=== PATIENT | female | born 1980 | race Caucasian/White ===

== ENCOUNTER → 2016-12-13 | Outpatient (CLI) | payer OTHER ==
--- NOTE | 2016-12-13 16:22 | RAD ---
Indication: Estimate growth. Technique: First trimester OB ultrasound was performed. No comparison for this is available. Findings: There is a single live intrauterine with heart tones of 150 bpm. Lindsey-rump length is 6.90 cm corresponding to a gestational age of 13 weeks 1 day. Placenta is developing anteriorly. No implantation bleed is apparent. Cervix appears long and closed. Neither maternal ovary is visualized. Impression: Single live intrauterine measures 13 weeks 1 day for estimated gestational age by ultrasound of June 19, 2017.
== END | disposition home or self-care (01) ==
LOC: US 14:41
PROVIDERS: ATTEND Obstetrics & Gynecology
DX: Z34.91 Encounter for supervision of normal pregnancy, unspecified, first trimester (principal); Z3A.13 13 weeks gestation of pregnancy
CPT/HCPCS: 76801

== ENCOUNTER → 2017-01-20 | Outpatient (CLI) | payer OTHER ==
--- NOTE | 2017-01-20 14:35 | RAD ---
Obstetrical ultrasound, 01/20/2017: History: Size and date discrepancy There is a single intrauterine fetus present in a transverse orientation with the head on the maternal right. The biparietal diameter measures 4.3 cm compatible with a gestational age of 18-19 weeks. This corresponds well to the other measurements and yields a sonographic EDC of 06/18/2017. This correlates well with the EDC of 06/19/2017 established on the previous ultrasound exam of 12/13/2016. Normal activity and heart motion are seen. The heart rate is 141 bpm. No specific abnormality is detected. The placenta lies anteriorly with no evidence of a placenta previa. A normal amount of amniotic fluid is present. The cervical length measures 6.3 cm, although it is probably accentuated by compression by the adjacent distended urinary bladder. IMPRESSION: Single viable intrauterine fetus of 18-19 weeks gestational age which has demonstrated normal interval growth since 12/13/2016.
== END | disposition home or self-care (01) ==
LOC: US 12:00
PROVIDERS: ATTEND Obstetrics & Gynecology
DX: O09.522 Supervision of elderly multigravida, second trimester (principal); O26.842 Uterine size-date discrepancy, second trimester; Z3A.19 19 weeks gestation of pregnancy
CPT/HCPCS: 76805

== ENCOUNTER 2017-06-21 05:38 | Inpatient (IN) | payer BC ==
[~2017-06-21] VITALS: Ht 162.6 cm; Wt 81.2 kg
[2017-06-21] VITALS (9 sets, daily range): BP systolic 95–119; BP diastolic 56–75
[2017-06-21] MEDS ORDERED: IV RINGERS,LACTATED 1000ML 1,000 ML IV SCH ×2 (06:00→11:15)
[2017-06-21] MEDS ORDERED: CITRIC ACID/SODIUM CITRATE 30 ML SOLUTION. PO ONE (06:30)
[2017-06-21 06:43] LABS: HEMATOCRIT 27.4 % (36.0-47.0); HEMOGLOBIN 9.1 g/dL (12.0-15.5); RED BLOOD COUNT 3.08 x10^6/uL (3.50-5.40); RED CELL DISTRIBUTION WIDTH 14.2 % (11.5-14.5)
[2017-06-21] MEDS ORDERED: RANI150T6 PO (07:14)
[2017-06-21] MEDS ORDERED: PNV1TABL25 PO (07:15)
[2017-06-21 07:41] LABS: BILIRUBIN,URINE NEGATIVE (NEG); GLUCOSE,URINE NEGATIVE (NEG)
[2017-06-21 07:42] LABS: BACTERIA,URINE FEW /HPF (0-FEW); NITRITE,URINE NEGATIVE (NEG); PH,URINE 7.5; PROTEIN,URINE NEGATIVE (NEG-TRACE); RBC,URINE RARE /HPF (0-2); SQUAMOUS EPITHELIAL CELL,UR FEW /LPF; WBC,URINE RARE /HPF (0-4)
[2017-06-21] MEDS ORDERED: MORPHINE PF 5 MG/10 ML VIAL. ONE (08:01)
[2017-06-21] MEDS ORDERED: OXYTOCIN 10 UNIT/ML VIAL. ONE (08:01)
[2017-06-21] MEDS ORDERED: fentaNYL PF VIAL 100 MCG/2 ML VIAL ONE (08:01)
--- NOTE | 2017-06-21 08:11 | PDOC1 ---
OB - History Hx of Present Care: Good Care Ultrasounds: Normal mid trimester US Obstetrical Complications: Other (Oligohydramnios) Medical Complications: None Past Family/Social History * Past Medical, Surgical, Family and Obstetric Histories reviewed from chart. Rubella: Immune RPR/VDRL: Negative GBS Status: Negative HBsAG: Negative OB - Chief Complaint & HPI Date of Admission: Date of Admission: Jun 21, 2017 at 05:38 Chief Complaint/History : 1 Para: 0 EGA: 40 Indication for : malpresentation Admission Nurse Assessment Rev: Yes Problems: OB - Admission Exam Physical Exam Vitals: VS - Last 72 Hours, by Label Date Time Temp Pulse Resp B/P (MAP) Pulse Ox O2 Delivery O2 Flow Rate FiO2 06/21/17 06:48 98.2 87 18 119/75 (90) Room Air 98.2 HEENT: Normal Heart: Regular Rate Lungs: Clear Abdomen: Gravid, Non tender, Soft Extremities: Edema Reflexes: Normal Cervical Dilatation: Fingertip Effacement: 50% Station: -3 Membranes: Intact Heart Rate: Normal Accelerations: Accelerations Present Decelerations: No decelerations Contractions on Admission: None Intensity: Mild Text A: 40 wks IUP Breech Oligohydramnios P: Admit for c/s. JESUS MARTIN Jr, MD Jun 21, 2017 08:11
--- NOTE | 2017-06-21 09:06 | PDOC4 ---
OB Operative Note PRE OP DIAGNOSIS: Breech POST OP DIAGNOSIS: Breech OPERATION PERFORMED: [facility] Surgeon Dr. Méndez Organizational Research Consultant Daniella Anesthesia: Regional (Spinal) Blood Loss 800 ml Specimen placenta and infant OB Findings: Position (Breech), Sex (Female), (8/9), Weight (8 Lb 1 oz) Complications none Additional Remarks pt. JESUS Barriga Jr, MD Jun 21, 2017 09:06
[2017-06-21] MEDS ORDERED: ONDANSETRON PF 4 MG/2 ML VIAL. IV PRN (09:15)
[2017-06-21] MEDS ORDERED: OXYTOCIN 30 UNIT/500 ML PREMIX 500 ML IV PRN (09:15)
[2017-06-21] MEDS ORDERED: 0.9 % SODIUM CHLORIDE 10 ML DISP.SYRIN. IV PRN (09:15)
[2017-06-21] MEDS ORDERED: MAG HYDROX/ALUMINUM HYD/SIMETH 30 ML ORAL.SUSP PO PRN (09:15)
[2017-06-21] MEDS ORDERED: SIMETHICONE 80 MG TAB.CHEW PO PRN (09:15)
[2017-06-21] MEDS ORDERED: diphenhydrAMINE ORAL ELIXIR 12.5 MG/5 ML ML PO PRN (09:15)
[2017-06-21] MEDS ORDERED: ZOLPIDEM 5 MG TABLET. PO PRN (09:15)
[2017-06-21] MEDS ORDERED: ONDANSETRON PF 4 MG/2 ML VIAL. ONE (09:31)
[2017-06-21] MEDS ORDERED: METOCLOPRAMIDE HCL 10 MG/2 ML VIAL. ONE (09:31)
[2017-06-21] MEDS ORDERED: PHENYLEPHRINE in 0.9% NACL PF 1 MG/10 ML DISP.SYRIN. IV ONE (09:31)
[2017-06-21] MEDS ORDERED: FAMOTIDINE 20 MG/2 ML VIAL ONE (09:31)
[2017-06-21] MEDS: KETOROLAC 30 MG/ML INJ. IV PRN ×2 (09:32→21:26)
--- NOTE | 2017-06-21 10:08 | OP ---
DATE OF SURGERY: 06/21/2017 DATE OF SERVICE: 06/21/2017 PREOPERATIVE DIAGNOSES: 1. 40 weeks intrauterine . 2. Breech presentation. 3. Oligohydramnios. POSTOPERATIVE DIAGNOSES: 1. 40 weeks intrauterine . 2. Breech presentation. 3. Oligohydramnios. PROCEDURE: Primary low transverse section. SURGEON: Jesus Méndez MD FINANCIAL WELLNESS COACH: Daniella. ANESTHESIA: Spinal. ESTIMATED BLOOD LOSS: 800 mL. COMPLICATIONS: None. FINDINGS: Viable female infant, Apgars 8 and 9, weight 8 pounds 1 ounce, 3-vessel cord placenta delivered manually intact. SUMMARY: A 37-year-old 1 at 40 weeks' gestation who presented for primary low transverse section due to breech presentation with oligohydramnios. The patient was counseled on risks, benefits and expectations and voiced clear understanding to proceed. DESCRIPTION OF PROCEDURE: The patient was taken to surgery suite and placed in dorsal supine position. She was prepped with ChloraPrep and draped in sterile fashion. After adequate anesthesia, a Pfannenstiel skin incision was made with scalpel down to and through the fascia. Fascia was extended laterally using curved Roper scissors. The superior edge of the fascia was grasped with two Justyna clamps and dissected free of the abdominal rectus muscles using blunt dissection along with curved Roper scissors. Same process took place inferiorly. The abdominal rectus muscles were dissected bluntly at the midline. Peritoneum was grasped with 2 hemostats and entered sharply with Metzenbaum scissors. This incision was extended superiorly as well as inferiorly. The Evens ring retractor was placed. Low transverse hysterotomy incision was made with scalpel down to the infant. The hysterotomy incision was extended laterally and superiorly digitally. With the aid of fundal pressure, the buttock was delivered all the way up to the knees in which the knees were both flexed. With additional fundal pressure, the infant was delivered down to the subscapular region, in which the left arm was then flexed and rotated for delivery. ____ was then flexed and delivered. With additional fundal pressure, the 's head and right arm were delivered. The was suctioned with bulb syringe orally and nasally, umbilical cord was clamped twice and cut. A viable female was handed to waiting nursing staff. Umbilical cord blood was then obtained. Three-vessel cord placenta was delivered manually intact. The uterus was exteriorized, cleared of clot and debris with moist lap. The hysterotomy incision was reapproximated using 1-0 Vicryl suture in a running locked fashion and imbricated layer of 1-0 Vicryl suture was utilized in a running fashion for better hemostasis. [id number] sutures placed in the left apex of the hysterotomy incision for better hemostasis. Uterus palpated firm. Fallopian tubes and ovaries appeared normal bilaterally. Posterior cul-de-sac was cleared of clot and debris with moist lap. The uterus then returned to the abdomen. Pericolic gutters were cleared of clot and debris with moist lap. Interceed was placed over the hysterotomy incision in an inverted T fashion. The Evens ring retractor was removed. The peritoneum was reapproximated using 1-0 Vicryl suture in running fashion. Fascia was reapproximated using 0 Vicryl suture in running fashion. Skin was reapproximated using 4-0 Vicryl suture in subcuticular manner. The patient tolerated the procedure well and was taken to recovery room in stable condition. Sponge and needle counts were correct x3. JESUS MÉNDEZ MD DR: CASSIDY/hudson JOB#: [id number] / [id number]
[2017-06-22 05:16] LABS: BASO % 0 % (0-3); EOS % 0 % (0-3); HEMATOCRIT 22.2 % (36.0-47.0); HEMOGLOBIN 7.6 g/dL (12.0-15.5); LYMPH % 8 % (24-48); MEAN CORPUSCULAR HEMOGLOBIN 30 pg (25-35); MEAN CORPUSCULAR HGB CONC 34 g/dL (31-37); MEAN CORPUSCULAR VOLUME 88 fL (79-100); MONO % 8 % (0-9); NEUT % 84 % (31-73); PLATELET COUNT 290 x10^3/uL (140-400); RED BLOOD COUNT 2.52 x10^6/uL (3.50-5.40); RED CELL DISTRIBUTION WIDTH 14.1 % (11.5-14.5); WHITE BLOOD COUNT 12.3 x10^3/uL (4.0-11.0)
[2017-06-22 05:21] LABS: RPR REFLEX Non Reactive (Non Reactive)
[2017-06-22] MEDS: IBUPROFEN 800 MG TABLET. PO PRN ×2 (05:41→16:57)
[2017-06-22 06:14] VITALS: BP 106/68
[2017-06-22] MEDS: FERROUS SULFATE 325 MG TABLET. PO SCH ×2 (09:47→16:56)
[2017-06-22] MEDS: oxyCODONE/APAP 5/325 1 TAB TABLET PO PRN ×2 (09:48→20:37)
[2017-06-22] MEDS: DOCUSATE SODIUM 100 MG CAPSULE. PO PRN ×2 (09:48→20:36)
[2017-06-22 11:20] VITALS: BP 121/83
[2017-06-22] MEDS ORDERED: FLU VACC QS2017-18 (36MOS+)/PF 0.5 ML SYRINGE. VAX IM ONE (11:45)
[2017-06-22] MEDS ORDERED: DIPHTH,PERTUSS(ACELL),TET TOX 0.5 ML DISP.SYRIN. VAX IM ONE (11:45)
[2017-06-22 15:20] VITALS: BP 115/78
--- NOTE | 2017-06-22 17:07 | PDOC ---
OB Progress Note Date of Service 06/22/17 Time of Evaluation 1705 Notes Pt. feeling well. Pain controlled. LOchia minimal. Pt. ambulating and voiding without difficulty. Lab Laboratory Tests Test 06/21/17 05:59 06/21/17 06:20 06/21/17 06:50 06/22/17 04:00 RPR Titer Additional Testing Non reactive (Non Reactive) White Blood Count 8.0 x10^3/uL (4.0-11.0) 12.3 x10^3/uL (4.0-11.0) Red Blood Count 3.08 x10^6/uL (3.50-5.40) 2.52 x10^6/uL (3.50-5.40) Hemoglobin 9.1 g/dL (12.0-15.5) 7.6 g/dL (12.0-15.5) Hematocrit 27.4 % (36.0-47.0) 22.2 % (36.0-47.0) Mean Corpuscular Volume 89 fL (79-100) 88 fL (79-100) Mean Corpuscular Hemoglobin 30 pg (25-35) 30 pg (25-35) Mean Corpuscular Hemoglobin Concent 33 g/dL (31-37) 34 g/dL (31-37) Red Cell Distribution Width 14.2 % (11.5-14.5) 14.1 % (11.5-14.5) Platelet Count 326 x10^3/uL (140-400) 290 x10^3/uL (140-400) Urine Collection Type Void Urine Color Yellow Urine Clarity Cloudy Urine pH 7.5 Urine Specific [place] 1.010 Urine Protein Negative mg/dL (NEG-TRACE) Urine Glucose (UA) Negative mg/dL (NEG) Urine Ketones (Stick) Negative mg/dL (NEG) Urine Blood Negative (NEG) Urine Nitrite Negative (NEG) Urine Bilirubin Negative (NEG) Urine Urobilinogen Dipstick 2.0 mg/dL (0.2 mg/dL) Urine Leukocyte Esterase Negative (NEG) Urine RBC Rare /HPF (0-2) Urine WBC Rare /HPF (0-4) Urine Squamous Epithelial Cells Few /LPF Urine Bacteria Few /HPF (0-FEW) Neutrophils (%) (Auto) 84 % (31-73) Lymphocytes (%) (Auto) 8 % (24-48) Monocytes (%) (Auto) 8 % (0-9) Eosinophils (%) (Auto) 0 % (0-3) Basophils (%) (Auto) 0 % (0-3) Neutrophils # (Auto) 10.3 x10^3uL (1.8-7.7) Lymphocytes # (Auto) 1.0 x10^3/uL (1.0-4.8) Monocytes # (Auto) 0.9 x10^3/uL (0.0-1.1) Eosinophils # (Auto) 0.0 x10^3/uL (0.0-0.7) Basophils # (Auto) 0.0 x10^3/uL (0.0-0.2) Laboratory Tests Test 06/22/17 04:00 White Blood Count 12.3 x10^3/uL (4.0-11.0) Red Blood Count 2.52 x10^6/uL (3.50-5.40) Hemoglobin 7.6 g/dL (12.0-15.5) Hematocrit 22.2 % (36.0-47.0) Mean Corpuscular Volume 88 fL (79-100) Mean Corpuscular Hemoglobin 30 pg (25-35) Mean Corpuscular Hemoglobin Concent 34 g/dL (31-37) Red Cell Distribution Width 14.1 % (11.5-14.5) Platelet Count 290 x10^3/uL (140-400) Neutrophils (%) (Auto) 84 % (31-73) Lymphocytes (%) (Auto) 8 % (24-48) Monocytes (%) (Auto) 8 % (0-9) Eosinophils (%) (Auto) 0 % (0-3) Basophils (%) (Auto) 0 % (0-3) Neutrophils # (Auto) 10.3 x10^3uL (1.8-7.7) Lymphocytes # (Auto) 1.0 x10^3/uL (1.0-4.8) Monocytes # (Auto) 0.9 x10^3/uL (0.0-1.1) Eosinophils # (Auto) 0.0 x10^3/uL (0.0-0.7) Basophils # (Auto) 0.0 x10^3/uL (0.0-0.2) Medications Current Medications Ringer's Solution 1,000 ml @ 1,000 mls/hr Q1H IV Last administered on 07:45; Start 06/21/17 at 06:00; Stop 06/21/17 at 06:59; Status DC Cefazolin Sodium/ Dextrose 50 ml @ 100 mls/hr 1X ONCE IV ; Start 06/21/17 at 06:30; Stop 06/21/17 at 06:59; Status DC Citric Acid/ Sodium Citrate (Bicitra) 30 ml 1X ONCE PO Last administered on 07:45; Start 06/21/17 at 06:30; Stop 06/21/17 at 06:31; Status DC Fentanyl Citrate (Fentanyl 2ml Vial) 100 mcg STK-MED ONCE .ROUTE ; Start at 08:01; Stop 06/21/17 at 08:02; Status DC Morphine Sulfate (Morphine Preservative Free) 5 mg STK-MED ONCE .ROUTE ; Start 06/21/17 at 08:01; Stop 06/21/17 at 08:02; Status DC Oxytocin (Pitocin) 10 unit STK-MED ONCE .ROUTE ; Start 06/21/17 at 08:01; Stop 06/21/17 at 08:02; Status DC Cefazolin Sodium/ Dextrose 50 ml @ As Directed STK-MED ONCE IV ; Start 06/21/17 at 08:44; Stop 06/21/17 at 08:45; Status DC Sodium Chloride (Normal Saline Flush) 3 ml QSHIFT PRN IV AFTER MEDS AND BLOOD DRAWS; Start 06/21/17 at 09:15 Oxytocin/Sodium Chloride 500 ml @ 125 mls/hr CONT PRN IV EXCESSIVE POST- BLEEDING; Start 06/21/17 at 09:15; Stop 06/21/17 at 17:14; Status DC Ibuprofen (Motrin) 800 mg PRN Q8HRS PRN PO INFLAMMATION Last administered on 16:57; Start 06/21/17 at 09:15 Ondansetron HCl (Zofran) 4 mg PRN Q6HRS PRN IV NAUSEA/VOMITING; Start 06/21/17 at 09:15 Docusate Sodium (Colace) 100 mg PRN BID PRN PO CONSTIPATION Last administered on 06/22/17 09:48; Start 06/21/17 at 09:15 Al Hydroxide/Mg Hydroxide (Mylanta Plus Xs) 30 ml PRN Q4HRS PRN PO HEARTBURN / GAS; Start 06/21/17 at 09:15 Simethicone (Gas-X) 80 mg PRN AFTMEALHC PRN PO GAS / BLOATING; Start 06/21/17 at 09:15 Diphenhydramine HCl (Benadryl Oral Elixir) 12.5 mg PRN Q6HRS PRN PO ITCHING; Start 06/21/17 at 09:15 Ferrous Sulfate (Feosol) 325 mg BIDWMEALS PO Last administered on 06/22/17 16: 56; Start 06/21/17 at 17:00 Zolpidem Tartrate (Ambien) 5 mg PRN QHS PRN PO INSOMNIA, MAY REPEAT X1; Start 06/21/17 at 09:15 Oxycodone/ Acetaminophen (Percocet 5/325) 2 tab PRN Q4HRS PRN PO MODERATE PAIN , SEVERE PAIN Last administered on 06/22/17 09:48; Start 06/21/17 at 09:15 Ketorolac Tromethamine (Toradol) 30 mg PRN Q6HRS PRN IV PAIN Last administered on 06/21/17 21:26; Start 06/21/17 at 09:15; Stop 06/26/17 at 09:14 Phenylephrine HCl 1 mg STK-MED ONCE IV ; Start 06/21/17 at 09:31; Stop 06/21/17 at 09:32; Status DC Ondansetron HCl (Zofran) 4 mg STK-MED ONCE .ROUTE ; Start 06/21/17 at 09:31; Stop 06/21/17 at 09:32; Status DC Metoclopramide HCl (Reglan) 10 mg STK-MED ONCE .ROUTE ; Start 06/21/17 at 09:31 ; Stop 06/21/17 at 09:32; Status DC Famotidine (Pepcid) 20 mg STK-MED ONCE .ROUTE ; Start 06/21/17 at 09:31; Stop at 09:32; Status DC Ringer's Solution 1,000 ml @ 125 mls/hr Q8H IV Last administered on 06/21/17t 11:07; Start 06/21/17 at 11:15 Influenza Virus Vaccine Quadrival (Fluarix Quad [id number] Syringe) 0.5 ml ONCE ONCE VAX IM ; Start 06/22/17 at 11:45; Stop 06/22/17 at 11:46; Status DC Diphtheria/ Tetanus/Acell Pertussis (Boostrix) 0.5 ml ONCE ONCE VAX IM ; Start 06/22/17 at 11:45; Stop 06/22/17 at 11:46; Status DC Active Scripts Active Reported Tablet (Pnv Cmb#95/Ferrous Fumarate/Fa) 1 Each Tablet 1 Tab PO DAILY Zantac (Ranitidine Hcl) 150 Mg Tablet 150 Mg PO DAILY Exam Abd: soft, mild tenderness, fundus firm Incision site: clean, dry and intact Assessment POD#1 s/p c/s Plan of Care: Continue current Tx, Mgmt JESUS MARTIN Jr, MD Jun 22, 2017 17:07
--- NOTE | 2017-06-22 17:08 | DISCH ---
DISCHARGE INSTRUCTIONS Condition on Discharge Condition on Discharge: Stable Activity After Discharge Activity Instructions for Disc: Activity as tolerated Lifting Instructions after Dis: No heavy lifting Driving Instructions after Dis: No driving for 2 weeks Diet after Discharge Diet after Discharge: Regular Contacting the DRYissel after DC Call your doctor for: Concerns you may have Follow-Up Follow up with: Dr. Méndez in 2 weeks. JESUS MÉNDEZ Jr, MD Jun 22, 2017 17:08
[2017-06-22] MEDS ORDERED: OXYC-323 PO (17:09)
[2017-06-22] MEDS ORDERED: DOCU-109 PO (17:09)
[2017-06-22] MEDS ORDERED: IBUP-1060 PO (17:09)
[2017-06-22] MEDS ORDERED: FERR-26 PO (17:13)
[2017-06-22 20:39] VITALS: BP 104/68
[2017-06-23 06:10] VITALS: BP 103/68
[2017-06-23] MEDS: IBUPROFEN 800 MG TABLET. PO PRN (06:17)
[2017-06-23] MEDS: FERROUS SULFATE 325 MG TABLET. PO SCH (09:53)
[2017-06-23] MEDS: DOCUSATE SODIUM 100 MG CAPSULE. PO PRN (09:53)
[2017-06-23] MEDS: oxyCODONE/APAP 5/325 1 TAB TABLET PO PRN (10:07)
[2017-06-23 13:04] VITALS: BP 113/78
--- NOTE | 2017-06-23 13:09 | PDOC ---
OB Progress Note Date of Service 06/23/17 Time of Evaluation 1305 Notes Pt. feeling well. No complaints. Lab Laboratory Tests Test 06/22/17 04:00 White Blood Count 12.3 x10^3/uL (4.0-11.0) Red Blood Count 2.52 x10^6/uL (3.50-5.40) Hemoglobin 7.6 g/dL (12.0-15.5) Hematocrit 22.2 % (36.0-47.0) Mean Corpuscular Volume 88 fL (79-100) Mean Corpuscular Hemoglobin 30 pg (25-35) Mean Corpuscular Hemoglobin Concent 34 g/dL (31-37) Red Cell Distribution Width 14.1 % (11.5-14.5) Platelet Count 290 x10^3/uL (140-400) Neutrophils (%) (Auto) 84 % (31-73) Lymphocytes (%) (Auto) 8 % (24-48) Monocytes (%) (Auto) 8 % (0-9) Eosinophils (%) (Auto) 0 % (0-3) Basophils (%) (Auto) 0 % (0-3) Neutrophils # (Auto) 10.3 x10^3uL (1.8-7.7) Lymphocytes # (Auto) 1.0 x10^3/uL (1.0-4.8) Monocytes # (Auto) 0.9 x10^3/uL (0.0-1.1) Eosinophils # (Auto) 0.0 x10^3/uL (0.0-0.7) Basophils # (Auto) 0.0 x10^3/uL (0.0-0.2) Medications Current Medications Ringer's Solution 1,000 ml @ 1,000 mls/hr Q1H IV Last administered on 07:45; Start 06/21/17 at 06:00; Stop 06/21/17 at 06:59; Status DC Cefazolin Sodium/ Dextrose 50 ml @ 100 mls/hr 1X ONCE IV ; Start 06/21/17 at 06:30; Stop 06/21/17 at 06:59; Status DC Citric Acid/ Sodium Citrate (Bicitra) 30 ml 1X ONCE PO Last administered on 07:45; Start 06/21/17 at 06:30; Stop 06/21/17 at 06:31; Status DC Fentanyl Citrate (Fentanyl 2ml Vial) 100 mcg STK-MED ONCE .ROUTE ; Start at 08:01; Stop 06/21/17 at 08:02; Status DC Morphine Sulfate (Morphine Preservative Free) 5 mg STK-MED ONCE .ROUTE ; Start 06/21/17 at 08:01; Stop 06/21/17 at 08:02; Status DC Oxytocin (Pitocin) 10 unit STK-MED ONCE .ROUTE ; Start 06/21/17 at 08:01; Stop 06/21/17 at 08:02; Status DC Cefazolin Sodium/ Dextrose 50 ml @ As Directed STK-MED ONCE IV ; Start 06/21/17 at 08:44; Stop 06/21/17 at 08:45; Status DC Sodium Chloride (Normal Saline Flush) 3 ml QSHIFT PRN IV AFTER MEDS AND BLOOD DRAWS; Start 06/21/17 at 09:15 Oxytocin/Sodium Chloride 500 ml @ 125 mls/hr CONT PRN IV EXCESSIVE POST- BLEEDING; Start 06/21/17 at 09:15; Stop 06/21/17 at 17:14; Status DC Ibuprofen (Motrin) 800 mg PRN Q8HRS PRN PO INFLAMMATION Last administered on 06:17; Start 06/21/17 at 09:15 Ondansetron HCl (Zofran) 4 mg PRN Q6HRS PRN IV NAUSEA/VOMITING; Start 06/21/17 at 09:15 Docusate Sodium (Colace) 100 mg PRN BID PRN PO CONSTIPATION Last administered on 06/23/17 09:53; Start 06/21/17 at 09:15 Al Hydroxide/Mg Hydroxide (Mylanta Plus Xs) 30 ml PRN Q4HRS PRN PO HEARTBURN / GAS; Start 06/21/17 at 09:15 Simethicone (Gas-X) 80 mg PRN AFTMEALHC PRN PO GAS / BLOATING; Start 06/21/17 at 09:15 Diphenhydramine HCl (Benadryl Oral Elixir) 12.5 mg PRN Q6HRS PRN PO ITCHING; Start 06/21/17 at 09:15 Ferrous Sulfate (Feosol) 325 mg BIDWMEALS PO Last administered on 06/23/17 09: 53; Start 06/21/17 at 17:00 Zolpidem Tartrate (Ambien) 5 mg PRN QHS PRN PO INSOMNIA, MAY REPEAT X1; Start 06/21/17 at 09:15 Oxycodone/ Acetaminophen (Percocet 5/325) 2 tab PRN Q4HRS PRN PO MODERATE PAIN , SEVERE PAIN Last administered on 06/23/17 10:07; Start 06/21/17 at 09:15 Ketorolac Tromethamine (Toradol) 30 mg PRN Q6HRS PRN IV PAIN Last administered on 06/21/17 21:26; Start 06/21/17 at 09:15; Stop 06/26/17 at 09:14 Phenylephrine HCl 1 mg STK-MED ONCE IV ; Start 06/21/17 at 09:31; Stop 06/21/17 at 09:32; Status DC Ondansetron HCl (Zofran) 4 mg STK-MED ONCE .ROUTE ; Start 06/21/17 at 09:31; Stop 06/21/17 at 09:32; Status DC Metoclopramide HCl (Reglan) 10 mg STK-MED ONCE .ROUTE ; Start 06/21/17 at 09:31 ; Stop 06/21/17 at 09:32; Status DC Famotidine (Pepcid) 20 mg STK-MED ONCE .ROUTE ; Start 06/21/17 at 09:31; Stop at 09:32; Status DC Ringer's Solution 1,000 ml @ 125 mls/hr Q8H IV Last administered on 06/21/17 11:07; Start 06/21/17 at 11:15 Influenza Virus Vaccine Quadrival (Fluarix Quad [id number] Syringe) 0.5 ml ONCE ONCE VAX IM Last administered on 06/23/17 09:57; Start 06/22/17 at 11:45; Stop 06/22/17 at 11:46; Status DC Diphtheria/ Tetanus/Acell Pertussis (Boostrix) 0.5 ml ONCE ONCE VAX IM Last administered on 06/23/17 09:55; Start 06/22/17 at 11:45; Stop 06/22/17 at 11:46 ; Status DC Active Scripts Active Ferrous Sulfate 325 Mg Tablet 1 Tab PO BID Percocet 5-325 Mg Tablet (Oxycodone/Acetaminophen) 1 Each Tablet 1 Tab PO PRN Q6HRS PRN Ibuprofen 800 Mg Tablet 800 Mg PO PRN Q6HRS PRN Colace (Docusate Sodium) 100 Mg Capsule 100 Mg PO BID Reported Tablet (Pnv Cmb#95/Ferrous Fumarate/Fa) 1 Each Tablet 1 Tab PO DAILY Zantac (Ranitidine Hcl) 150 Mg Tablet 150 Mg PO DAILY Exam Abd: soft, non tender, fundus firm Incision site: clean, dry and intact Assessment POD#2 s/p c/s Plan of Care: See new orders (D/c home.) JESUS MARTIN Jr, MD Jun 23, 2017 13:09
== END 2017-06-23 15:56 | disposition home or self-care (01) | DRG 765 ==
LOC: 3 SO LND 05:38 → 3 NORTH 12:10
PROVIDERS: ADMIT Obstetrics & Gynecology; ATTEND Obstetrics & Gynecology
PROC: 10D00Z1 Extraction of Products of Conception, Low, Open Approach (ICD-10-PCS; principal; 2017-06-21)
DX: O32.1XX0 Maternal care for breech presentation, not applicable or unspecified (principal); O45.93 Premature separation of placenta, unspecified, third trimester; O41.03X0 Oligohydramnios, third trimester, not applicable or unspecified; D25.9 Leiomyoma of uterus, unspecified; O34.13 Maternal care for benign tumor of corpus uteri, third trimester; O36.63X0 Maternal care for excessive fetal growth, third trimester, not applicable or unspecified; Z37.0 Single live birth; Z3A.40 40 weeks gestation of pregnancy
CPT/HCPCS: 36415; 81001; 85025; 85027; 86593; 86850; 86900; 86901; 90686; 90715; J0690; J1885; J2270; J2370; J2405; J2590; J2765; J3010; J7120; S0028